=== PATIENT | male | born 1980 | race Caucasian/White ===

== ENCOUNTER 2016-09-21 17:37 | Emergency (ER) | payer OTHER ==
[~2016-09-21] VITALS: Wt 69.0 kg
[2016-09-21] MEDS ORDERED: IBUPROFEN 600 MG TAB PO ONE (18:30)
[2016-09-21] MEDS ORDERED: HYDROCODONE/APAP (5/325) TAB PO ONE (18:30)
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
--- NOTE | 2016-09-21 19:50 | RADRPT ---
PROCEDURE: XR Wrist. CLINICAL INDICATION: Pain. TECHNIQUE: 4 views of the left wrist. COMPARISON: None available. FINDINGS: No fracture or dislocation is identified. The joint spaces are preserved. There is no significant soft tissue swelling. IMPRESSION: 1. No fracture or dislocation of the left wrist. RPTAT: HTAR .Bc Carreon MD, Date Time Electronically viewed and signed by .Bc Carreon MD, on 09/21/2016 19:50 .R/
--- NOTE | 2016-09-21 19:50 | RADRPT ---
PROCEDURE: XR Hand. CLINICAL INDICATION: Pain. TECHNIQUE: Three views of the left hand. COMPARISON: None available. FINDINGS: No fracture or dislocation is identified. The joint spaces are preserved. There is no significant so ft tissue swelling. IMPRESSION: 1. No fracture or dislocation of the left hand. RPTAT: HTAR .Bc Carreon MD, MD Date Time Electronically viewed and signed by .Bc Carreon MD, on 09/21/2016 19:49 .R/
[2016-09-21] MEDS ORDERED: IBUP-1542 PO (20:05)
[2016-09-21] MEDS ORDERED: HYDR-906 PO (20:06)
== END 2016-09-21 20:17 | disposition home or self-care (01) ==
LOC: FTE 17:37
DX: S69.92XA Unspecified injury of left wrist, hand and finger(s), initial encounter (principal); S16.9XXA Unspecified injury of muscle, fascia and tendon at neck level, initial encounter; V43.52XA Car driver injured in collision with other type car in traffic accident, initial encounter
CPT/HCPCS: 72040